=== PATIENT | female | born 1970 | race Two or more races ===

== ENCOUNTER 2019-06-14 22:00 | Emergency (ER) | payer MEDICAID ==
[~2019-06-14] VITALS: Ht 157.5 cm; Wt 127.0 kg
[2019-06-14 22:52] LABS: BASOPHILS # (AUTO) 0.1 K/uL (0.0-8.0); BASOPHILS % (AUTO) 0.9 % (0.0-2.0); EOSINOPHILS # (AUTO) 0.1 K/uL (0.0-0.7); EOSINOPHILS % (AUTO) 1.7 % (0.0-7.0); HEMOGLOBIN 13.4 g/dL (10.9-14.3); LYMPHOCYTES # (AUTO) 3.5 K/uL (20.0-40.0); LYMPHOCYTES % (AUTO) 41.3 % (20.5-51.5); MEAN CORPUSCULAR HEMOGLOBIN 30.8 uug (24.7-32.8); MEAN CORPUSCULAR HGB CONC 33 g/dL (32.3-35.6); MEAN CORPUSCULAR VOLUME 92.1 fL (75.5-95.3); MONOCYTES # (AUTO) 0.5 K/uL (2.0-10.0); MONOCYTES % (AUTO) 6.1 % (0.0-11.0); NEUTROPHILS # (AUTO) 4.3 K/uL (1.8-8.9); PLATELET COUNT (AUTO) 233 K/uL (179-408); RED BLOOD CELL COUNT(AUTO) 4.35 MIL/uL (3.63-4.92); WHITE BLOOD COUNT (AUTO) 8.5 K/uL (3.8-11.8)
[2019-06-14 23:04] LABS: CREATININE 0.6 mg/dL (0.6-1.3); POTASSIUM 4.3 mmol/L (3.5-5.1)
[2019-06-14 23:08] LABS: BILIRUBIN,TOTAL 0.5 mg/dL (0.2-1.0); TOTAL PROTEIN, SERUM 7.7 g/dL (6.4-8.2)
[2019-06-14 23:14] LABS: BILIRUBIN,DIRECT 0.1 mg/dL (0.0-0.2)
[2019-06-14] MEDS ORDERED: KETOROLAC TROMETHAMINE 30 MG INJ IVP ONE (23:30)
[2019-06-14] MEDS ORDERED: IV NS 1000 ML 1,000 ML IV ONE (23:30)
[2019-06-14] MEDS ORDERED: KETOROLAC TROMETHAMINE 30 MG INJ ONE (23:31)
[2019-06-15 01:08] LABS: *BILIRUBIN,URIN NEGATIVE (NEGATIVE); *BLOOD, URINE NEGATIVE (NEGATIVE); *CLARITY,URINE CLEAR (CLEAR); *COLOR,URINE YELLOW (YELLOW); *KETONES,URINE NEGATIVE (NEGATIVE); *UROBILINOGEN,URINE 0.2 E.U./dl (NORMAL); LEUKOCYTE ESTERASE ,URINE NEGATIVE (NEGATIVE); NITRITE, URINE NEGATIVE (NEGATIVE); PH,URINE 5.5 (5.0-8.0); UGLUCOSE NEGATIVE (NEGATIVE)
[2019-06-15 01:10] LABS: *URINE HCG, QUAL NEGATIVE (NEGATIVE)
--- NOTE | 2019-06-15 02:27 | NUR ---
Patient discharged to home in stable conditon. Written and verbal after care instructions given. Patient and son verbalizes understanding of instructions. patient left with stable gait.
[2019-06-15 02:28] VITALS: BP 115/95
== END 2019-06-15 02:29 | disposition home or self-care (01) ==
LOC: ER 22:04
DX: R10.11 Right upper quadrant pain (principal)
CPT/HCPCS: 36415; 74176; 80048; 80076; 81001; 83690; 84702; 84703; 85025; 87077; 87086; 87186; 93005; 96374; 99285; J1885; A4663; J7030

== ENCOUNTER 2019-12-08 19:33 | Emergency (ER) | payer MEDICAID ==
[~2019-12-08] VITALS: Ht 157.5 cm; Wt 127.0 kg
--- NOTE | 2019-12-08 19:50 | NUR ---
Dr. Jackson at bedside for MSE
[2019-12-08 20:18] LABS: *BILIRUBIN,URIN NEGATIVE (NEGATIVE); *BLOOD, URINE 2+ (NEGATIVE); *CLARITY,URINE CLOUDY (CLEAR); *COLOR,URINE YELLOW (YELLOW); *KETONES,URINE NEGATIVE (NEGATIVE); *UROBILINOGEN,URINE 0.2 E.U./dl (NORMAL); LEUKOCYTE ESTERASE ,URINE 1+ (NEGATIVE); NITRITE, URINE NEGATIVE (NEGATIVE); PH,URINE 5.5 (5.0-8.0); UGLUCOSE 2+ (NEGATIVE)
[2019-12-08 21:49] LABS: BACTERIA,URINE NONE SEEN /HPF (NONE SEEN); SQUAMOUS EPITHELIAL CELL,UR MODERATE /HPF (NONE SEEN)
--- NOTE | 2019-12-08 22:25 | NUR ---
Patient discharged to home in stable condition. Written and verbal after care instructions given. Patient verbalizes understanding of instructions. Stressed follow up or return to ER for worsening s/s. Patient ambulated with steady gait. NAD noted.
[2019-12-08 22:46] VITALS: BP 145/89
== END 2019-12-08 22:25 | disposition home or self-care (01) ==
LOC: ER 19:33
DX: B37.3 Candidiasis of vulva and vagina (principal)
CPT/HCPCS: 87077; 87086; A4663

== ENCOUNTER 2021-07-05 18:17 | Emergency (ER) | payer MEDICAID ==
[~2021-07-05] VITALS: Ht 157.5 cm; Wt 131.5 kg
[~2021-07-05 18:17] MED LIST: CLON0.1T14 PO; LOSA25TA3 PO
--- NOTE | 2021-07-05 18:55 | NUR ---
Dr. Martinez at bedside for MSE.
[2021-07-05] MEDS ORDERED: IV NORMAL SALINE 1000 ML BAG IV ONE (19:00)
[2021-07-05] MEDS ORDERED: HYDROMORPHONE 1 MG/1 ML DISP.SYRIN IV ONE (19:00)
[2021-07-05] MEDS ORDERED: ONDANSETRON 4 MG/2 ML VIAL IV ONE (19:00)
[2021-07-05 19:28] LABS: HEMATOCRIT 44.2 % (31.2-41.9); MEAN CORPUSCULAR VOLUME 91.8 fL (75.5-95.3); PLATELET COUNT (AUTO) 207 K/uL (179-408)
[2021-07-05] MEDS ORDERED: ONDANSETRON 4 MG/2 ML VIAL ONE (19:37)
[2021-07-05] MEDS ORDERED: HYDROMORPHONE 1 MG/1 ML DISP.SYRIN ONE (19:38)
[2021-07-05 19:39] LABS: BILIRUBIN,DIRECT 0.2 mg/dL (0.0-0.2); CREATININE 0.6 mg/dL (0.6-1.3); POTASSIUM 3.9 mmol/L (3.5-5.1); TOTAL PROTEIN, SERUM 7.6 g/dL (6.4-8.2)
--- NOTE | 2021-07-05 19:48 | NUR ---
Xray at bedside.
--- NOTE | 2021-07-05 20:39 | NUR ---
Pt provided urine sample, sent to lab.
[2021-07-05 20:48] LABS: *BILIRUBIN,URIN NEGATIVE (NEGATIVE); *BLOOD, URINE 1+ (NEGATIVE); *CLARITY,URINE CLOUDY (CLEAR); *COLOR,URINE YELLOW (YELLOW); *KETONES,URINE 1+ (NEGATIVE); *UROBILINOGEN,URINE 0.2 E.U./dl (NORMAL); LEUKOCYTE ESTERASE ,URINE NEGATIVE (NEGATIVE); NITRITE, URINE POSITIVE (NEGATIVE); PH,URINE 5.5 (5.0-8.0); UGLUCOSE 3+ (NEGATIVE)
[2021-07-05 20:58] LABS: *URINE HCG, QUAL NEGATIVE (NEGATIVE); BACTERIA,URINE MODERATE /HPF (NONE SEEN); SQUAMOUS EPITHELIAL CELL,UR MANY /HPF (NONE SEEN)
[2021-07-05] MEDS ORDERED: IOHEXOL 300MG/ML 100 ML INFUS..BTL ONE (21:20)
[2021-07-05] MEDS ORDERED: SWABABLE VALVE TRANSFER SET EA MC ONE (21:20)
[2021-07-05] MEDS ORDERED: IV NORMAL SALINE 250 ML IV ONE (21:20)
[2021-07-05] MEDS ORDERED: PROC-11 PO (23:08)
[2021-07-05] MEDS ORDERED: OXYC-128 PO (23:08)
[2021-07-05 23:46] VITALS: BP 127/92
== END 2021-07-05 23:50 | disposition home or self-care (01) ==
LOC: ER 18:17
DX: M79.10 Myalgia, unspecified site (principal); B34.9 Viral infection, unspecified; Z20.822 Contact with and (suspected) exposure to COVID-19; R00.0 Tachycardia, unspecified; I10 Essential (primary) hypertension; E11.9 Type 2 diabetes mellitus without complications; Z90.49 Acquired absence of other specified parts of digestive tract; E66.01 Morbid (severe) obesity due to excess calories; Z68.43 Body mass index [BMI] 50.0-59.9, adult; Z79.899 Other long term (current) drug therapy
CPT/HCPCS: 36415; 71045; 74177; 80048; 80076; 81001; 83605; 83690; 84703; 85025; 87086; 87426; 93005; 96361; 96374; 96375; 99285; J1170; J2405; Q9967; A4663; J7030; J7050

== ENCOUNTER 2022-03-26 09:21 | Emergency (ER) | payer MEDICAID ==
[~2022-03-26] VITALS: Ht 157.5 cm; Wt 120.2 kg
[~2022-03-26 09:21] MED LIST changes: +OXYC-128 PO; +PROC-11 PO
[2022-03-26] MEDS ORDERED: CIPR7.5D LEFT EAR (10:10)
[2022-03-26] MEDS ORDERED: CEPH500T PO (10:10)
--- NOTE | 2022-03-26 10:14 | NUR ---
PATIENT WAS SEEN BY . DC, RX AND FOLLOW UP INSRTUCTIONS GIVEN AND EXPLAINED TO PATIENT WHO STATES SHE UNDERSTANDS ALL INSTRUCTIONS (IN [place])
== END 2022-03-26 10:15 | disposition home or self-care (01) ==
LOC: ER 09:21
DX: H60.02 Abscess of left external ear (principal); R03.0 Elevated blood-pressure reading, without diagnosis of hypertension; Z68.42 Body mass index [BMI] 45.0-49.9, adult
CPT/HCPCS: A4663

== ENCOUNTER 2022-06-21 13:34 | Emergency (ER) | payer MEDICAID ==
[~2022-06-21] VITALS: Ht 157.5 cm; Wt 120.2 kg
[~2022-06-21 13:34] MED LIST changes: +CEPH500T PO; +CIPR7.5D LEFT EAR
--- NOTE | 2022-06-21 15:11 | NUR ---
Pt is A&Ox4. No S&S of acute distress. No CP, N/V, SOB, nor dizziness. visited and assess Pt. Performed Influenza and COVID-19 test. Pt ambulatory. Safety measures in place. Will continue to monitor.
[2022-06-21] MEDS ORDERED: AMOX-430 PO (15:29)
[2022-06-21] MEDS ORDERED: MOME17SP BNOSTRILS (15:29)
[2022-06-21] MEDS ORDERED: IBUPROFEN 800 MG TABLET ONE (15:43)
[2022-06-21] MEDS ORDERED: IBUPROFEN 600 MG TABLET ONE (15:45)
[2022-06-21] MEDS ORDERED: IBUPROFEN 600 MG TABLET PO ONE (15:45)
--- NOTE | 2022-06-21 15:47 | NUR ---
Patient discharged to home in stable condition. Written and verbal after care instructions given. Had Dry Heat Cabinet Attendant, Darnell (ID: [id number]), give discharge instructions. Patient verbalizes understanding of instructions. Stressed follow up or return to ER for worsening s/s.
== END 2022-06-21 15:49 | disposition home or self-care (01) ==
LOC: ER 13:34
DX: J32.1 Chronic frontal sinusitis (principal); Z20.822 Contact with and (suspected) exposure to COVID-19; Z90.49 Acquired absence of other specified parts of digestive tract
CPT/HCPCS: 70450; A4663

== ENCOUNTER 2023-02-01 15:12 | Inpatient (IN) | payer MEDICAID ==
[~2023-02-01] VITALS: Ht 157.5 cm; Wt 92.1 kg
[~2023-02-01 15:12] MED LIST changes: +AMOX-430 PO; +MOME17SP BNOSTRILS
[2023-02-01] MEDS ORDERED: DEXAMETHASONE SOD PHOSPHATE 4 MG INJ IV ONE (15:45)
[2023-02-01] MEDS ORDERED: CEFTRIAXONE 1 G in IV DEXTROSE 5% 50 ML IV ONE (15:45)
[2023-02-01] MEDS ORDERED: AZITHROMYCIN 250 MG TABLET PO ONE (15:45)
[2023-02-01] MEDS ORDERED: DEXAMETHASONE SOD PHOSPHATE 10 MG INJ ONE (15:51)
[2023-02-01] MEDS ORDERED: CEFTRIAXONE /D5W 50ML IVPB **ER PYXIS IV ONE (15:51)
[2023-02-01] MEDS ORDERED: AZITHROMYCIN 250 MG TABLET ONE (15:58)
[2023-02-01 16:04] LABS: BASOPHILS % (AUTO) 0.7 % (0.0-2.0); EOSINOPHILS # (AUTO) 0.2 K/uL (0.0-0.7); EOSINOPHILS % (AUTO) 2.4 % (0.0-7.0); HEMATOCRIT 43.3 % (31.2-41.9); HEMOGLOBIN 14.4 g/dL (10.9-14.3); LYMPHOCYTES # (AUTO) 2.1 K/uL (0.8-4.8); LYMPHOCYTES % (AUTO) 34.4 % (20.5-51.5); MEAN CORPUSCULAR HEMOGLOBIN 30.6 uug (24.7-32.8); MEAN CORPUSCULAR HGB CONC 33 g/dL (32.3-35.6); MEAN CORPUSCULAR VOLUME 92.3 fL (75.5-95.3); MONOCYTES # (AUTO) 0.5 K/uL (0.1-1.30); MONOCYTES % (AUTO) 7.7 % (0.0-11.0); NEUTROPHILS # (AUTO) 3.4 K/uL (1.8-8.9); NEUTROPHILS % (AUTO) 54.8 % (38.5-71.5); PLATELET COUNT (AUTO) 256 K/uL (179-408); RED BLOOD CELL COUNT(AUTO) 4.69 MIL/uL (3.63-4.92); RED CELL DISTRIBUTION WIDTH 13.8 % (12.3-17.7); WHITE BLOOD COUNT (AUTO) 6.2 K/uL (3.8-11.8)
[2023-02-01 16:12] LABS: ALANINE AMINOTRANSFERASE 52 U/L (14-59); ALBUMIN 3.4 g/dL (3.4-5.0); ALKALINE PHOSPHATASE 132 U/L (50-136); ASPARTATE AMINOTRANSFERASE 24 U/L (15-37); BILIRUBIN,DIRECT 0.1 mg/dL (0.0-0.2); BILIRUBIN,TOTAL 0.7 mg/dL (0.2-1.0); CALCIUM 9.1 mg/dL (8.5-10.1); CARBON DIOXIDE 24 mmol/L (21-32); CHLORIDE 101 mmol/L (98-107); CREATININE 0.8 mg/dL (0.6-1.3); POTASSIUM 3.8 mmol/L (3.5-5.1); SODIUM SERUM 136 mmol/L (136-145); TOTAL PROTEIN, SERUM 7.4 g/dL (6.4-8.2); UREA NITROGEN, BLOOD 14 mg/dL (7-18)
[2023-02-01 16:17] LABS: GLUCOSE 416 mg/dL (74-106)
[2023-02-01 16:18] LABS: LACTIC ACID 2.1 mmol/L (0.4-2.0)
[2023-02-01] MEDS ORDERED: ALBUTEROL SULFATE 2.5 MG/3 ML NEBU NEB ONE (16:30)
[2023-02-01] MEDS ORDERED: IPRATROPIUM BROMIDE 0.5 MG/2.5 ML NEBU NEB ONE (16:30)
[2023-02-01] MEDS ORDERED: ALBUTEROL SULFATE 2.5 MG/3 ML NEBU ONE (16:33)
[2023-02-01] MEDS ORDERED: IPRATROPIUM BROMIDE 0.5 MG/2.5 ML NEBU ONE (16:33)
[2023-02-01] MEDS ORDERED: IV NORMAL SALINE 1000 ML BAG IV ONE ×2 (17:00→19:30)
[2023-02-01 17:53] VITALS: O2SAT 98; O2SAT 99
[2023-02-01] MEDS ORDERED: IV NORMAL SALINE 250 ML IV ONE (18:03)
[2023-02-01] MEDS ORDERED: IOHEXOL 300MG/ML 100 ML INFUS..BTL ONE (18:03)
[2023-02-01] MEDS ORDERED: SWABABLE VALVE TRANSFER SET EA MC ONE (18:03)
[2023-02-01] MEDS ORDERED: AMLO-61 PO (18:18)
[2023-02-01] MEDS ORDERED: METF-441 PO (18:18)
[2023-02-01] MEDS ORDERED: SEMA0.25 INJ (18:18)
[2023-02-01] MEDS ORDERED: ATOR20TA PO (18:18)
[2023-02-01] MEDS: INSULIN REGULAR, HUMAN 300 UNIT/3 ML VIAL SQ ONE ×2 (20:37→20:53)
[2023-02-01 23:00] VITALS: BP 155/93; TEMP 98; O2SAT 96
[2023-02-02] MEDS ORDERED: INSULIN REGULAR, HUMAN 300 UNIT/3 ML VIAL SQ PRN (00:15)
[2023-02-02] MEDS ORDERED: ACETAMINOPHEN 325 MG TABLET PO PRN (00:15)
[2023-02-02] MEDS ORDERED: DEXTROSE 50% 50 ML DISP.SYRIN IV PRN (00:15)
[2023-02-02] MEDS ORDERED: ONDANSETRON 4 MG/2 ML VIAL IV PRN (00:15)
[2023-02-02] MEDS ORDERED: REMEDY ESSENTIAL ZINC PASTE 113 GM TP PRN (00:15)
[2023-02-02] MEDS ORDERED: MAGNESIUM HYDROXIDE 30 ML LIQUID UDC PO PRN (00:15)
[2023-02-02] MEDS ORDERED: ZOLPIDEM 5 MG TABLET PO PRN (00:15)
[2023-02-02 04:06] VITALS: BP 105/64; TEMP 98.3; O2SAT 96
[2023-02-02] MEDS ORDERED: AMLO1CAP PO (06:04)
[2023-02-02] MEDS: BLOOD SUGAR DIAGNOSTIC 1 EACH STRIP VI SCH ×2 (06:49→12:13)
[2023-02-02 07:14] LABS: BASOPHILS # (AUTO) 0.1 K/UL (0.0-0.2); BASOPHILS % (AUTO) 0.5 % (0.0-2.0); HEMATOCRIT 38.5 % (31.2-41.9); HEMOGLOBIN 12.7 g/dL (10.9-14.3); LYMPHOCYTES # (AUTO) 1.4 K/uL (0.8-4.8); LYMPHOCYTES % (AUTO) 12.4 % (20.5-51.5); MEAN CORPUSCULAR HGB CONC 33 g/dL (32.3-35.6); MEAN CORPUSCULAR VOLUME 93.9 fL (75.5-95.3); MONOCYTES # (AUTO) 0.3 K/uL (0.1-1.30); MONOCYTES % (AUTO) 2.5 % (0.0-11.0); NEUTROPHILS # (AUTO) 9.5 K/uL (1.8-8.9); NEUTROPHILS % (AUTO) 84.6 % (38.5-71.5); PLATELET COUNT (AUTO) 198 K/uL (179-408); RED CELL DISTRIBUTION WIDTH 13.8 % (12.3-17.7); WHITE BLOOD COUNT (AUTO) 11.3 K/uL (3.8-11.8)
[2023-02-02 07:29] LABS: DIFFERENTIAL COMMENT 1
[2023-02-02 08:50] LABS: CALCIUM 8.4 mg/dL (8.5-10.1); CARBON DIOXIDE 21 mmol/L (21-32); CHLORIDE 103 mmol/L (98-107); CREATININE 0.5 mg/dL (0.6-1.3); GLUCOSE 295 mg/dL (74-106); POTASSIUM 4.2 mmol/L (3.5-5.1); UREA NITROGEN, BLOOD 8 mg/dL (7-18)
[2023-02-02] MEDS ORDERED: methylPREDNISolone SOD SUCC 40 MG/ML VIAL IV SCH (09:00)
[2023-02-02 10:28] LABS: SODIUM SERUM 134 mmol/L (136-145)
[2023-02-02 11:43] VITALS: BP 127/60; TEMP 97.7; O2SAT 97
[2023-02-02] MEDS ORDERED: CEPH500C2 PO (13:45)
[2023-02-02] MEDS ORDERED: CEFTRIAXONE 1 G in IV DEXTROSE 5% 50 ML IV SCH (16:00)
[2023-02-02] MEDS ORDERED: AZITHROMYCIN 250 MG TABLET PO SCH (16:00)
[2023-02-02 16:47] VITALS: BP 149/88; TEMP 98; O2SAT 93
== END 2023-02-02 17:06 | disposition home or self-care (01) | DRG 420 ==
LOC: ER 15:15 → TELE3 22:52 → MEDSURG3 02-02 09:10
PROVIDERS: ADMIT Nurse Practitioner Acute Care; ATTEND Nurse Practitioner Acute Care
DX: E11.65 Type 2 diabetes mellitus with hyperglycemia (principal); E87.20 Acidosis, unspecified; J84.10 Pulmonary fibrosis, unspecified; E66.01 Morbid (severe) obesity due to excess calories; R50.9 Fever, unspecified; R53.1 Weakness; Z68.37 Body mass index [BMI] 37.0-37.9, adult; I10 Essential (primary) hypertension; Z90.49 Acquired absence of other specified parts of digestive tract; Z91.013 Allergy to seafood; Z79.84 Long term (current) use of oral hypoglycemic drugs; Z79.899 Other long term (current) drug therapy; Z91.148 Patient's other noncompliance with medication regimen for other reason; J98.11 Atelectasis; Z91.199 Patient's noncompliance with other medical treatment and regimen due to unspecified reason
CPT/HCPCS: 71045; 71260; 83605; 84484; 85025; 85730; 87040; 93005; A4606; A4663; G0378; J0696; J1100; J1815; J2920; J3590; J7040; Q0144; Q9967

== ENCOUNTER 2024-03-20 13:57 | Emergency (ER) | payer MEDICAID ==
[~2024-03-20] VITALS: Ht 157.5 cm; Wt 121.1 kg
[~2024-03-20 13:57] MED LIST changes: +AMLO1CAP PO; +ATOR20TA PO; +CEPH500C2 PO; -CEPH500T PO; -CIPR7.5D LEFT EAR; -LOSA25TA3 PO; +METF-441 PO; -OXYC-128 PO; -PROC-11 PO; +SEMA0.25 INJ
[2024-03-20] MEDS: DEXAMETHASONE SOD PHOSPHATE 4 MG INJ IV ONE (15:00)
[2024-03-20] MEDS: IV NORMAL SALINE 1000 ML BAG IV ONE (15:00)
[2024-03-20] MEDS: CEFTRIAXONE 1 G in IV DEXTROSE 5% 50 ML IV ONE (15:00)
[2024-03-20] MEDS ORDERED: AZITHROMYCIN 250 MG TABLET ONE (15:16)
[2024-03-20] MEDS: AZITHROMYCIN 250 MG TABLET PO ONE ×2 (15:30→17:47)
[2024-03-20 15:43] LABS: BASOPHILS # (AUTO) 0.1 K/UL (0.0-0.2); BASOPHILS % (AUTO) 0.6 % (0.0-2.0); EOSINOPHILS % (AUTO) 0.5 % (0.0-7.0); HEMATOCRIT 41.4 % (31.2-41.9); HEMOGLOBIN 13.9 g/dL (10.9-14.3); LYMPHOCYTES # (AUTO) 1.1 K/uL (0.8-4.8); LYMPHOCYTES % (AUTO) 10.8 % (20.5-51.5); MEAN CORPUSCULAR HEMOGLOBIN 31.1 uug (24.7-32.8); MEAN CORPUSCULAR HGB CONC 34 g/dL (32.3-35.6); MEAN CORPUSCULAR VOLUME 92.3 fL (75.5-95.3); MONOCYTES # (AUTO) 0.5 K/uL (0.1-1.30); NEUTROPHILS # (AUTO) 8.7 K/uL (1.8-8.9); NEUTROPHILS % (AUTO) 83.1 % (38.5-71.5); PLATELET COUNT (AUTO) 206 K/uL (179-408); RED BLOOD CELL COUNT(AUTO) 4.48 MIL/uL (3.63-4.92); RED CELL DISTRIBUTION WIDTH 13.4 % (12.3-17.7); WHITE BLOOD COUNT (AUTO) 10.4 K/uL (3.8-11.8)
[2024-03-20 15:52] LABS: CARBON DIOXIDE 27 mmol/L (21-32); CHLORIDE 99 mmol/L (98-107); CREATININE 0.7 mg/dL (0.6-1.3); GLUCOSE 319 mg/dL (74-106); POTASSIUM 3.8 mmol/L (3.5-5.1); SODIUM SERUM 136 mmol/L (136-145); UREA NITROGEN, BLOOD 11 mg/dL (7-18)
[2024-03-20 16:05] LABS: ALANINE AMINOTRANSFERASE 61 U/L (14-59); ALBUMIN 3.4 g/dL (3.4-5.0); ALKALINE PHOSPHATASE 159 U/L (50-136); ASPARTATE AMINOTRANSFERASE 16 U/L (15-37); BILIRUBIN,DIRECT 0.2 mg/dL (0.0-0.2); NT-PRO BNP 85 pg/mL (0-125); TOTAL PROTEIN, SERUM 7.4 g/dL (6.4-8.2)
[2024-03-20 16:13] LABS: *BILIRUBIN,URIN NEGATIVE (NEGATIVE); *CLARITY,URINE CLEAR (CLEAR); *COLOR,URINE YELLOW (YELLOW); *KETONES,URINE 1+ (NEGATIVE); *PROTEIN,URINE NEGATIVE (NEGATIVE); *UROBILINOGEN,URINE 0.2 E.U./dl (NORMAL); LEUKOCYTE ESTERASE ,URINE NEGATIVE (NEGATIVE); NITRITE, URINE NEGATIVE (NEGATIVE); UGLUCOSE 2+ (NEGATIVE)
[2024-03-20 16:14] LABS: *BLOOD, URINE TRACE (NEGATIVE)
[2024-03-20 17:11] LABS: BACTERIA,URINE MODERATE /HPF (NONE SEEN); RBC,URINE 0-3 /HPF (0-3); SQUAMOUS EPITHELIAL CELL,UR FEW /HPF (NONE SEEN); WBC,URINE 0-3 /HPF (0-3)
[2024-03-20] MEDS ORDERED: PRED50TA PO (17:36)
[2024-03-20] MEDS ORDERED: AZIT500T PO (17:36)
[2024-03-20] MEDS ORDERED: ACET1TAB23 PO (17:36)
[2024-03-20] MEDS ORDERED: predniSONE 50 MG TABLET ONE (17:37)
[2024-03-20] MEDS ORDERED: HYDROCODONE/APAP 5-325MG TABLET ONE (17:37)
[2024-03-20] MEDS ORDERED: CLONIDINE HCL 0.1 MG TABLET ONE (17:37)
[2024-03-20] MEDS: HYDROCODONE/APAP 5-325MG TABLET PO ONE (17:47)
[2024-03-20] MEDS: CLONIDINE HCL 0.1 MG TABLET PO ONE (17:47)
[2024-03-20] MEDS: predniSONE 50 MG TABLET PO ONE (17:47)
[2024-03-20 18:29] VITALS: BP 159/81; O2SAT 98
== END 2024-03-20 18:35 | disposition home or self-care (01) ==
LOC: ER 13:57
DX: J18.9 Pneumonia, unspecified organism (principal); E11.9 Type 2 diabetes mellitus without complications; I10 Essential (primary) hypertension; Z79.51 Long term (current) use of inhaled steroids; Z79.52 Long term (current) use of systemic steroids; Z79.84 Long term (current) use of oral hypoglycemic drugs; Z90.49 Acquired absence of other specified parts of digestive tract; Z20.822 Contact with and (suspected) exposure to COVID-19
CPT/HCPCS: 36415; 71045; 80048; 80076; 81001; 83605; 83880; 84145; 84484; 85025; 85730; 87040; 87426; 87804; 93005; 99285; J7040; J7512; A4606; A4663; Q0144